=== PATIENT | female | born 2005 | race Caucasian/White ===

== ENCOUNTER 2023-10-22 14:08 | Emergency (ER) | payer BC, SELFPAY ==
[2023-10-22 14:30] VITALS: BP 138/70; PULSE 88; RESP 18; TEMP 37; O2SAT 98; BMI 24.4
--- NOTE | 2023-10-22 14:36 | ED_ITS ---
Discharge Plan Disposition Patient Disposition: Home, Self-Care Condition: Good Prescriptions Prescriptions: New amoxicillin 875 mg tablet 875 mg PO Q12H Qty: 20 0RF methylprednisolone 4 mg Tablets,Dose Pack 4 mg PO DIRECTED 6 Days Qty: 21 0RF Rx Instructions: Take 1 pack as directed for 6 days ogaowiriuwrveza-auxmofopo-XS [Bromfed DM] 2-30-10 mg/5 mL Syrup 5 ml PO Q6H PRN (Reason: Cough) Qty: 240 0RF No Action norethindrone (contraceptive) 0.35 mg tablet 0.35 mg PO DAILY Patient Comments: TAKE 1 TABLET BY MOUTH EVERY DAY fluoxetine 20 mg capsule 20 mg PO DAILY Patient Comments: TAKE 1 CAPSULE BY MOUTH EVERY DAY Referrals Follow up/Referrals: Yamilex Holloway [Primary Care Provider] - See instructions Activity Restrictions/Add. Instructions Additional Instructions/Restrictions: Drink plenty of fluids. Take tylenol or ibuprofen for pain or fever. Take the medications as directed. Follow up with your regular doctor. GO TO THE ER FOR ANY WORSENING SYMPTOMS Clinical Impressions Clinical Impression: Strep throat Stand Alone Forms Stand Alone Forms: Work/School Release Instructions Patient Instructions: Strep Throat, DI for Strep Throat Discharge ED Provider: Gabe Zamarripa [facility] General Stated complaint: sore throat, vomitting, congestion Time Seen by Provider: 10/22/23 14:36 History of Present Illness Provider Complaint: She states that for the past 4 days she has had sore throat, cough, sinus congestion and drainage. Related Data Home Medications Medication Instructions Recorded Confirmed fluoxetine 20 mg capsule 20 mg PO DAILY 10/22/23 10/22/23 norethindrone (contraceptive) 0.35 0.35 mg PO DAILY 10/22/23 10/22/23 mg tablet Previous Rx's Medication Instructions Recorded amoxicillin 875 mg tablet 875 mg PO Q12H #20 tabs 10/22/23 olxmnqibyaineaz-cmqmwvorjshtzgx-IN 5 ml PO Q6H PRN Cough #240 mL 10/22/23 2 mg-30 mg-10 mg/5 mL oral syrup (Bromfed DM) methylprednisolone 4 mg tablets in 4 mg PO DIRECTED 6 days #21 tabs 10/22/23 a dose pack Allergies Allergy/AdvReac Type Severity Reaction Status Date / Time No Known Allergies Allergy Verified 10/22/23 14:50 [facility] Disclaimer: The information contained in this section may have been updated after the patient was seen, as this information can be updated by other users. Social History Smoking Status: Never smoker alcohol intake: never current occupational status: employed Travel in the last 8 weeks: None ROS Obtained: Yes All systems reviewed & no additional complaints except as documented Constitutional Constitutional: Reports chills and Reports fever(s) Eyes Eyes: Denies eye discharge ENT Ears, Nose, Mouth, and Throat: Reports as per HPI Cardiovascular Cardiovascular: Denies chest pain Respiratory Respiratory: Denies chest congestion and Reports cough Gastrointestinal Gastrointestingal: Reports nausea; Denies abdominal pain, constipation, cramping, diarrhea or vomiting Musculoskeletal Musculoskeletal: Denies arthralgias Integumentary/Breasts Skin/Breast: Denies rash Neurologic Neurologic: Denies paresthesias Physical Exam General General appearance: alert and in no apparent distress Head Head exam: atraumatic, normocephalic and normal inspection Eye Eye exam: Present normal appearance, PERRL and EOMI ENT ENT exam: Present mucous membranes moist and normal external ear exam Expanded ENT Exam TM/Canal exam: Bilateral TM: erythema and bulging Nose exam: Absent sinus tenderness Mouth exam: Present normal external inspection; Absent drooling Teeth exam: Present normal inspection Throat exam: Present tonsillar erythema, tonsillomegaly and tonsillar exudate Neck Neck exam: Present normal inspection, full ROM and trachea midline; Absent tenderness, meningismus or lymphadenopathy Chest Chest inspection: Present normal inspection and symmetric chest wall rise; Absent tenderness Respiratory Respiratory exam: Present normal lung sounds bilaterally; Absent respiratory distress, wheezes or stridor Cardiovascular Cardiovascular exam: Present regular rate and normal rhythm; Absent systolic murmur or diastolic murmur Abdominal Exam Abdominal exam: Present soft and normal bowel sounds; Absent distention, tenderness, guarding, rebound or rigidity Extremities Exam Extremities exam: Present normal inspection and normal capillary refill; Absent calf tenderness Back Exam Back exam: Present normal inspection and full ROM; Absent tenderness, CVA tenderness (R) or CVA tenderness (L) Neurological Exam Neurological exam: Present alert, oriented X3 and CN II-XII intact Psychiatric Psychiatric exam: Present normal affect and normal mood Skin Skin exam: Present warm, dry, intact and normal color Medical Decision Making Medical Records Medical records reviewed: No I reviewed the patient's medical records. Jeff Inquiry Pt receiving controlled substance: No Lab Data Lab results reviewed: Yes I reviewed the patient's lab results.
[2023-10-22 14:49] LABS: UTC Strep Screen (Rapid) Positive (Negative)
[2023-10-22 14:50] LABS: UTC Influenza A Antigen Negative (Negative); UTC Influenza B Antigen Negative (Negative)
[2023-10-22 15:03] VITALS: BP 138/70; PULSE 88; RESP 18; TEMP 37; O2SAT 98
== END 2023-10-22 15:03 | disposition home or self-care (01) ==
PROVIDERS: Emergency Provider Nurse Practitioner Family; PCP Family Medicine
DX: J02.0 Streptococcal pharyngitis (principal); R07.0 Pain in throat; R09.81 Nasal congestion; R05.9 Cough, unspecified; R11.0 Nausea
CPT/HCPCS: 87804; 87880; 99204; 99212; G0463

== ENCOUNTER 2023-11-10 12:50 | Outpatient (CLI) | payer BC, SELFPAY ==
--- NOTE | 2023-11-10 13:25 | US_ITS ---
PROCEDURE INFORMATION: Exam: US Right Breast, Complete Exam date and time: 11/10/2023 1:37 PM Age: 18 years old Clinical indication: RT breast palpable mass TECHNIQUE: Imaging protocol: Complete ultrasound of all four quadrants of the right breast and the retroareolar regions, including ultrasound of the axilla when performed. COMPARISON: No relevant prior studies available. FINDINGS: ULTRASOUND: Breast ultrasound findings: Sonographic images of the right 12 o'clock axis 3 cm from the nipple where the patient reports a palpable abnormality demonstrates uniformly hypoechoic lobulated solid mass measuring 2.0 x 1.9 x 1.0 cm in dimension. It is immediately adjacent to a similar appearing gently lobulated hypoechoic solid mass in the 12 o'clock axis 4 cm from the nipple measuring 0.9 x 0.6 x 0.9 cm. 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 No other solid or cystic masses are noted in the remainder of the right breast. No architectural distortion or acoustical shadowing. No axillary adenopathy. IMPRESSION: Palpable abnormality in the right breast corresponds to 2 adjacent solid masses as described above. A six-month follow-up targeted right breast ultrasound is recommended to ensure stability over time ASSESSMENT: BI-RADS Category 3: Probably benign.
== END 2023-11-10 23:59 ==
LOC: RAD 12:53
PROVIDERS: PCP Family Medicine; Visit Provider Family Medicine
DX: D48.61 Neoplasm of uncertain behavior of right breast (principal)
CPT/HCPCS: 76641